=== PATIENT | female | born 1965 | race Caucasian/White ===

== ENCOUNTER 2019-02-14 13:13 | Emergency (ER) | payer BC ==
[2019-02-14] MEDS ORDERED: LIDOCAINE 1% MPF 2 ML AMPULE ONE (15:18)
[2019-02-14] MEDS ORDERED: CEFTRIAXONE 1000 MG/VIAL ONE (15:19)
--- NOTE | 2019-02-14 15:22 | EDPHYS ---
Physician Documentation [facility] Name: Chino Cisneros Age: 53 yrs Sex: Female : 1965 Arrival Date: 02/14/2019 Time: 13:14 Bed 20 Private MD: ED Physician Dakota Duff HPI: 02/14 15:23 This 53 yrs old Female presents to ER via Ambulatory with complaints of snw Urinary Problem. 15:23 The patient presents with urinary symptoms, dysuria, frequency, hesitancy, urgency. snw Onset: The symptoms/episode began/occurred suddenly, 4 day(s) ago, and became persistent. Modifying factors: The symptoms are alleviated by nothing. Severity of symptoms: At their worst the symptoms were moderate. The patient has experienced similar episodes in the past. The patient has not recently seen a physician. took 3 days of friend's abx (unknown name). 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 - Social history:: Smoking status: Patient/guardian denies using tobacco, Patient/guardian denies using alcohol. - Ebola Screening: : Patient negative for fever greater than or equal to 101.5 degrees Fahrenheit, and additional compatible Ebola Virus Disease symptoms Patient denies exposure to infectious person Patient denies travel to an Ebola-affected area in the 21 days before illness onset. ROS: 15:19 Constitutional: Negative for fever, chills, and weight loss, Eyes: Negative for injury, snw pain, redness, and discharge, ENT: Negative for injury, pain, and discharge, Neck: Negative for injury, pain, and swelling, Cardiovascular: Negative for chest pain, palpitations, and edema, Respiratory: Negative for shortness of breath, cough, wheezing, and pleuritic chest pain, Abdomen/GI: Negative for abdominal pain, nausea, vomiting, diarrhea, and constipation, Back: Negative for injury and pain, MS/Extremity: Negative for injury and deformity, Skin: Negative for injury, rash, and discoloration, Neuro: Negative for headache, weakness, numbness, tingling, and seizure, Psych: Negative for depression, anxiety, suicide ideation, homicidal ideation, and hallucinations. 15:19 : Positive for urinary symptoms, urinary frequency, small amounts, burning with urination. Exam: 15:19 Constitutional: This is a well developed, well nourished patient who is awake, alert, snw and in no acute distress. Head/Face: Normocephalic, atraumatic. Eyes: Pupils equal round and reactive to light, extra-ocular motions intact. Lids and lashes normal. Conjunctiva and sclera are non-icteric and not injected. Cornea within normal limits. Periorbital areas with no swelling, redness, or edema. ENT: Nares patent. No nasal discharge, no septal abnormalities noted. Tympanic membranes are normal and external auditory canals are clear. Oropharynx with no redness, swelling, or masses, exudates, or evidence of obstruction, uvula midline. Mucous membranes moist. Neck: Trachea midline, no thyromegaly or masses palpated, and no cervical lymphadenopathy. Supple, full range of motion without nuchal rigidity, or vertebral point tenderness. No Meningismus. Chest/axilla: Normal chest wall appearance and motion. Nontender with no deformity. No lesions are appreciated. Cardiovascular: Regular rate and rhythm with a normal S1 and S2. No gallops, murmurs, or rubs. Normal PMI, no JVD. No pulse deficits. Respiratory: Lungs have equal breath sounds bilaterally, clear to auscultation and percussion. No rales, rhonchi or wheezes noted. No increased work of breathing, no retractions or nasal flaring. Abdomen/GI: Soft, non-tender, with normal bowel sounds. No distension or tympany. No guarding or rebound. No evidence of tenderness throughout. Back: No spinal tenderness. No costovertebral tenderness. Full range of motion. Skin: Warm, dry with normal turgor. Normal color with no rashes, no lesions, and no evidence of cellulitis. MS/ Extremity: Pulses equal, no cyanosis. Neurovascular intact. Full, normal range of motion. Neuro: Awake and alert, GCS 15, oriented to person, place, time, and situation. Cranial nerves II-XII grossly intact. Motor strength 5/5 in all extremities. Sensory grossly intact. Cerebellar exam normal. Normal gait. Psych: Awake, alert, with orientation to person, place and time. Behavior, mood, and affect are within normal limits. Vital Signs: 13:23 BP 116 / 56; Pulse 87; Resp 18; Temp 98.7(O); Pulse Ox 100% on R/A; Weight 53.98 kg; hj Height 5 ft. 4 in. (162.56 cm); Pain 0/10; 13:23 Body Mass Index 20.43 (53.98 kg, 162.56 cm) hj MDM: 15:08 Patient medically screened. snw 15:22 Data reviewed: vital signs, nurses notes. Data interpreted: Pulse oximetry: on room air snw is 100 %. Interpretation: normal. Counseling: I had a detailed discussion with the patient and/or guardian regarding: the historical points, exam findings, and any diagnostic results supporting the discharge/admit diagnosis, the need for outpatient follow up, to return to the emergency department if symptoms worsen or persist or if there are any questions or concerns that arise at home. Special discussion: Based on the patient's Hx, exam, and Dx evaluation, there is no indication for emergent surgery or inpatient Tx. It is understood by the patient/guardian that if the Sx's persist or worsen they need to return immediately for re-evaluation. Based on the history and exam findings, there is no indication for further emergent testing or inpatient evaluation. I discussed with the patient/guardian the need to see the primary care provider for further evaluation of the symptoms. 02/14 14:08 Order name: Urine Culture [facility] 02/14 14:08 Order name: Urine Microscopic Only [facility] 02/14 14:08 Order name: Urine Dipstick-Ancillary (obtain specimen); Complete Time: 14:35 [facility] 02/14 14:38 Order name: Urine Dipstick--Ancillary (enter results) [facility] 02/14 14:38 Order name: Urine --Ancillary (enter results) [facility] 02/14 14:57 Order name: Labs - recollect needed; Complete Time: 15:15 aa5 Administered Medications: 15:30 Drug: Rocephin (cefTRIAXone) 1 grams Route: IM; Site: left ventrogluteal; hb Disposition: 18:17 Co-signature as Attending Physician, Dakota Duff MD I agree with the assessment and wa plan of care. Disposition: 02/14/19 15:21 Discharged to Home. Impression: Urinary tract infection, site not specified. - Condition is Stable. - Discharge Instructions: Urinary Tract Infection, Adult, Rehydration, Adult. - Prescriptions for cefpodoxime 100 mg Oral Tablet - take 1 tablet by ORAL route every 12 hours for 10 days take with food; 20 tablet. - Medication Reconciliation Form, Thank You Letter, Antibiotic Education, Prescription Opioid Use form. - Follow up: Private Physician; When: 2 - 3 days; Reason: Recheck today's complaints, Continuance of care, Re-evaluation by your physician. Follow up: Emergency Department; When: As needed; Reason: Worsening of condition. Signatures: Dispatcher [employer] EDMS Joan Harris, DELIA-C BRIEF WRITER-Csnw Ana Pablo RN RN aa Kei Johnson RN RN Jocelyn Guallpa RN RN Dakota Duff MD MD fl Corrections: (The following items were deleted from the chart) 15:49 15:21 02/14/2019 15:21 Discharged to Home. Impression: Urinary tract infection, site hb not specified. Condition is Stable. Forms are Medication Reconciliation Form, Thank You Letter, Antibiotic Education, Prescription Opioid Use. Follow up: Private Physician; When: 2 - 3 days; Reason: Recheck today's complaints, Continuance of care, Re-evaluation by your physician. Follow up: Emergency Department; When: As needed; Reason: Worsening of condition. snw
--- NOTE | 2019-02-14 15:22 | ER ---
Nurse's Notes [facility] Name: Chino Cisneros Age: 53 yrs Sex: Female : 1965 Arrival Date: 02/14/2019 Time: 13:14 Bed 20 Private MD: Diagnosis: Urinary tract infection, site not specified Presentation: 02/14 13:21 Presenting complaint: Patient states: im sure i have UTI, because of burning with hj urination, i took antibiotic pills from a friend for 3 days; now i have chills; denies pain;. Transition of care: patient was not received from another setting of care. Onset of symptoms was February 14, 2019. Risk Assessment: Do you want to hurt yourself or someone else? Patient reports no desire to harm self or others. Initial Sepsis Screen: Does the patient meet any 2 criteria? Yes Does the patient have a suspected source of infection? Yes:. Care prior to arrival: None. 13:21 Method Of Arrival: Ambulatory 13:21 Acuity: ANKUSH 4 hj Triage Assessment: 13:23 General: Appears in no apparent distress. uncomfortable, Behavior is cooperative, hj appropriate for age, anxious. 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 - Social history:: Smoking status: Patient/guardian denies using tobacco, Patient/guardian denies using alcohol. - Ebola Screening: : Patient negative for fever greater than or equal to 101.5 degrees Fahrenheit, and additional compatible Ebola Virus Disease symptoms Patient denies exposure to infectious person Patient denies travel to an Ebola-affected area in the 21 days before illness onset. Screenin:23 Abuse screen: Denies threats or abuse. Denies injuries from another. Nutritional hj screening: No deficits noted. Tuberculosis screening: No symptoms or risk factors identified. Fall Risk None identified. Assessment: 15:00 General: Appears in no apparent distress. Behavior is calm, cooperative. Pain: Pain hb currently is 3 out of 10 on a pain scale. Neuro: Level of Consciousness is awake, alert, obeys commands, Oriented to person, place, time, situation. Cardiovascular: Capillary refill < 3 seconds Patient's skin is warm and dry. Respiratory: Airway is patent Respiratory effort is even, unlabored, Respiratory pattern is regular, symmetrical. GI: No signs and/or symptoms were reported involving the gastrointestinal system. : Reports burning with urination, urinary frequency. EENT: No signs and/or symptoms were reported regarding the EENT system. Derm: Skin is intact, is healthy with good turgor. Musculoskeletal: No signs and/or symptoms reported regarding the musculoskeletal system. Vital Signs: 13:23 BP 116 / 56; Pulse 87; Resp 18; Temp 98.7(O); Pulse Ox 100% on R/A; Weight 53.98 kg; hj Height 5 ft. 4 in. (162.56 cm); Pain 0/10; 13:23 Body Mass Index 20.43 (53.98 kg, 162.56 cm) ED Course: 13:14 Patient arrived in ED. as 13:22 Triage completed. hj 13:24 Arm band placed on right wrist. hj 13:24 Patient has correct armband on for positive identification. Placed in gown. Bed in low hj position. Call light in reach. Side rails up X 1. Adult w/ patient. 14:09 Joan Harris FNP-C is PHCP. snw 14:09 Dakota Duff MD is Attending Physician. snw 14:35 Jocelyn Guallpa RN is Primary Nurse. hb 15:30 No provider procedures requiring assistance completed. Patient did not have IV access hb during this emergency room visit. Administered Medications: 15:30 Drug: Rocephin (cefTRIAXone) 1 grams Route: IM; Site: left ventrogluteal; hb Outcome: 15:21 Discharge ordered by . snw 15:30 Discharged to home ambulatory, with significant other. hb 15:30 Condition: stable 15:30 Discharge instructions given to patient, Instructed on discharge instructions, follow up and referral plans. medication usage, Demonstrated understanding of instructions, follow-up care, medications, Prescriptions given X 1. 15:49 Patient left the ED. hb Signatures: Joan Harris FNP-C FNP-Jaylin Escamilla as Kei Johnson RN RN hj Jocelyn Guallpa RN RN Corrections: (The following items were deleted from the chart) 13: 13:23 53.98 kg; Height 5 ft. 4 in.; BMI: 20.4; Pain 0/10; hj hj 13:26 13:23 Pulse 87bpm; Resp 18bpm; Pulse Ox 100% RA; Temp 98.7F Oral; 53.98 kg; Height 5 hj ft. 4 in.; BMI: 20.4; Pain 0/10; hj 15:32 13:21 Acuity: ANKUSH 3 hj hj
[2019-02-14 15:53] VITALS: BP 116/56; TEMP 98.7; O2SAT 100
[2019-02-14 16:29] LABS: Urine Blood 3+ (NEG); Urine Glucose NEGATIVE (NEG); Urine Specific Gravity 1.015 (1.005-1.030)
[2019-02-14 16:30] LABS: Urine Protein 2+ (NEG)
[2019-02-14 17:11] LABS: Urine Bacteria >50 /HPF (<20); Urine Culture Reflex Order NOT NEEDED; Urine RBC >50 /HPF (NONE SEEN)
== END 2019-02-14 15:49 | disposition home or self-care (01) ==
LOC: ER 13:13
DX: N39.0 Urinary tract infection, site not specified (principal); F32.9 Major depressive disorder, single episode, unspecified
CPT/HCPCS: 81003; 81015; 81025; 87077; 87086; 87088; 87186; 96372; 99283; J2001

== ENCOUNTER 2020-06-09 20:55 | Emergency (ER) | payer BC ==
[2020-06-09 22:04] LABS: Absolute Lymphocytes (CBC) 1.7 K/uL (0.7-4.9); Basophils % 1.4 % (0-1.3); Hematocrit 36.2 % (36.0-45.0); Lymphocytes % 34.8 % (15.3-44.8); MPV 7.9 fL (7.6-11.3)
[2020-06-09 22:26] LABS: Protime INR 0.94
[2020-06-09 22:37] LABS: ALT/SGPT 37 U/L (12-78); AST/SGOT 38 U/L (15-37); Albumin 3.4 g/dL (3.4-5.0); Alkaline Phosphatase 36 U/L (45-117); BUN Blood Urea Nitrogen 25 mg/dL (7-18); Bicarbonate 27 mmol/L (21-32); Bilirubin Direct 0.1 mg/dL (0-0.2); Bilirubin Total 0.3 mg/dL (0.2-1.0); Glucose Level 92 mg/dL (74-106); NT PRO-BNP 46 pg/mL (<125); Potassium 3.8 mmol/L (3.5-5.1); Protein, Total 6.3 g/dL (6.4-8.2); Sodium Level 142 mmol/L (136-145); Troponin (Emerg Dept Use Only) < 0.02 ng/mL (0.0-0.045)
--- NOTE | 2020-06-10 00:10 | EDPHYS ---
Physician Documentation [facility] Name: Chino Cisneros Age: 54 yrs Sex: Female : 1965 Arrival Date: 06/09/2020 Time: 20:57 Bed 24 Private MD: ED Physician Arnol Deng HPI: 06/09 21:23 This 54 yrs old Female presents to ER via Ambulatory with complaints of mh7 Palpitations. 21:23 The patient presents with a history of heart racing. Context: The symptoms occur at mh7 rest, without known cause. Onset: The symptoms/episode began/occurred 2 week(s) ago. Duration: The patient or guardian reports multiple episodes, that are intermittent, that wax and wane, with no pattern. Modifying factors: The symptoms are aggravated by nothing. The symptoms are alleviated by nothing. Associated signs and symptoms: Pertinent positives: lightheadedness, Pertinent negatives: anxiety, chest pain, cough, fever, nausea, SOB, syncope, unusual stressors, vertigo, vomiting. Severity of symptoms: At their worst the symptoms were moderate today, in the emergency department the symptoms have improved markedly. 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 - Social history:: Patient/guardian denies using street drugs, Smoking status: Patient denies any tobacco usage or history of. Patient/guardian denies using. ROS: 21:23 Constitutional: Negative for fever, chills, and weight loss, Eyes: Negative for injury, mh7 pain, redness, and discharge, ENT: Negative for injury, pain, and discharge, Neck: Negative for injury, pain, and swelling, Respiratory: Negative for shortness of breath, cough, wheezing, and pleuritic chest pain, Abdomen/GI: Negative for abdominal pain, nausea, vomiting, diarrhea, and constipation, Back: Negative for injury and pain, : Negative for injury, bleeding, discharge, and swelling, MS/Extremity: Negative for injury and deformity, Skin: Negative for injury, rash, and discoloration, Neuro: Negative for headache, weakness, numbness, tingling, and seizure, Psych: Negative for depression, anxiety, suicide ideation, homicidal ideation, and hallucinations, Allergy/Immunology: Negative for hives, rash, and allergies, Endocrine: Negative for neck swelling, polydipsia, polyuria, polyphagia, and marked weight changes, Hematologic/Lymphatic: Negative for swollen nodes, abnormal bleeding, and unusual bruising. Exam: 21:23 Constitutional: This is a well developed, well nourished patient who is awake, alert, mh7 and in no acute distress. Head/Face: Normocephalic, atraumatic. Eyes: Pupils equal round and reactive to light, extra-ocular motions intact. Lids and lashes normal. Conjunctiva and sclera are non-icteric and not injected. Cornea within normal limits. Periorbital areas with no swelling, redness, or edema. Neck: Trachea midline, no thyromegaly or masses palpated, and no cervical lymphadenopathy. Supple, full range of motion without nuchal rigidity, or vertebral point tenderness. No Meningismus. Chest/axilla: Normal chest wall appearance and motion. Nontender with no deformity. No lesions are appreciated. Cardiovascular: Regular rate and rhythm with a normal S1 and S2. No gallops, murmurs, or rubs. Normal PMI, no JVD. No pulse deficits. Respiratory: Lungs have equal breath sounds bilaterally, clear to auscultation and percussion. No rales, rhonchi or wheezes noted. No increased work of breathing, no retractions or nasal flaring. Abdomen/GI: Soft, non-tender, with normal bowel sounds. No distension or tympany. No guarding or rebound. No evidence of tenderness throughout. Back: No spinal tenderness. No costovertebral tenderness. Full range of motion. Skin: Warm, dry with normal turgor. Normal color with no rashes, no lesions, and no evidence of cellulitis. MS/ Extremity: Pulses equal, no cyanosis. Neurovascular intact. Full, normal range of motion. Neuro: Awake and alert, GCS 15, oriented to person, place, time, and situation. Cranial nerves II-XII grossly intact. Motor strength 5/5 in all extremities. Sensory grossly intact. Cerebellar exam normal. Normal gait. Psych: Awake, alert, with orientation to person, place and time. Behavior, mood, and affect are within normal limits. 21:23 ECG was reviewed by the Attending Physician. Vital Signs: 21:14 BP 159 / 86; Pulse 73; Resp 16; Temp 98.2; Pulse Ox 99% ; Pain 0/10; ll1 22:03 BP 114 / 64; Pulse 65; Resp 16; Pulse Ox 100% on R/A; Pain 0/10; mt2 23:05 BP 106 / 57; Pulse 64; Resp 16; Pulse Ox 100% on R/A; Pain 0/10; mt2 06/10 00:10 BP 110 / 62; Pulse 63; Resp 16; Pulse Ox 100% on R/A; Pain 0/10; mt2 MDM: 06/09 21:21 Patient medically screened. [facility] 06/10 00:06 Differential diagnosis: arrythmia, dehydration, stress disorder. Data reviewed: vital [facility] signs, nurses notes, lab test result(s), cardiac enzymes, CBC, electrolytes, urinalysis, EKG, radiologic studies, plain films. Data interpreted: telemetry monitor: rate is 64 beats/min, rhythm is normal sinus rhythm, regular, Interpretation: normal rate, normal rhythm, Pulse oximetry: on room air is 100 %. Interpretation: normal. Counseling: I had a detailed discussion with the patient and/or guardian regarding: the historical points, exam findings, and any diagnostic results supporting the discharge/admit diagnosis, lab results, radiology results, the need for outpatient follow up, to return to the emergency department if symptoms worsen or persist or if there are any questions or concerns that arise at home. Response to treatment: the patient's symptoms have resolved after treatment, the patient's blood pressure is in an acceptable range, mental status has returned to baseline, the patient no longer shows bradycardia, the patient is not short of breath, the patient is not tachycardic, the patient's pain is gone, the patient's temperature has normalized. Refusal of service: The patient/guardian displays adequate decision making capability and despite a detailed discussion of alternatives, benefits, risks, and consequences refuses:. 06/09 21:22 Order name: Basic Metabolic Panel [facility] 06/09 21:22 Order name: CBC with Diff [facility] 06/09 21:22 Order name: LFT's [facility] 06/09 21:22 Order name: Magnesium [facility] 06/09 21:22 Order name: NT PRO-BNP; Complete Time: 23:17 [facility] 06/09 21:22 Order name: PT-INR; Complete Time: 22:29 [facility] 06/09 21:22 Order name: Troponin (emerg Dept Use Only); Complete Time: 23:17 [facility] 06/09 21:22 Order name: TSH; Complete Time: 23:17 [facility] 06/09 21:22 Order name: DD; Complete Time: 22:29 [facility] 06/09 21:22 Order name: Basic Metabolic Panel; Complete Time: 23:17 [facility] 06/09 21:22 Order name: CBC with Automated Diff; Complete Time: 22:29 [facility] 06/09 21:22 Order name: Liver (Hepatic) Function; Complete Time: 23:17 [facility] 06/09 21:22 Order name: Magnesium; Complete Time: 23:17 [facility] 06/09 22:46 Order name: T4 Free; Complete Time: 23:17 [facility] 06/09 21:22 Order name: XRAY Chest (1 view) [facility] 06/09 21:22 Order name: Cardiac monitoring; Complete Time: 21:54 [facility] 06/09 21:22 Order name: EKG - Nurse/Tech; Complete Time: 21:38 [facility] 06/09 21:22 Order name: IV Saline Lock; Complete Time: 21:55 [facility] 06/09 21:22 Order name: Labs collected and sent; Complete Time: 21:55 [facility] 06/09 21:22 Order name: O2 Per Protocol; Complete Time: 21:55 [facility] 06/09 21:22 Order name: O2 Sat Monitoring; Complete Time: 23:12 [facility] 06/09 23:25 Order name: Urine Dipstick-Ancillary (obtain specimen); Complete Time: 23:31 [facility] 06/09 23:42 Order name: Urine Dipstick--Ancillary (enter results) mw2 EC/19 21:23 Rate is 66 beats/min. Rhythm is regular, Normal Sinus Rhythm. QRS [place] is Normal. HI mh7 interval is normal. QRS interval is normal. QT interval is normal. No Q waves. T waves are Normal. No ST changes noted. Clinical impression: Normal ECG. Administered Medications: No medications were administered Disposition: 06/10/20 00:09 Discharged to Home. Impression: Palpitations. - Condition is Stable. - Discharge Instructions: Palpitations, [id number]. - Medication Reconciliation Form, Thank You Letter, Antibiotic Education, Prescription Opioid Use form. - Follow up: Private Physician; When: 1 - 2 days; Reason: Worsening of condition, Recheck today's complaints, Continuance of care, Re-evaluation by your physician. Follow up: Clarence Villagran MD; When: 1 - 2 days; Reason: Worsening of condition, Recheck today's complaints. - Problem is an ongoing problem. - Symptoms have improved. Signatures: Dispatcher [employer] EDMS Jhon Mosqueda RN RN ll1 Arnol Deng MD MD 7 Melissa Dempsey RN RN mt2 Corrections: (The following items were deleted from the chart) 06/10 00:20 00:09 06/10/2020 00:09 Discharged to Home. Impression: Palpitations. Condition is mt2 Stable. Forms are Medication Reconciliation Form, Thank You Letter, Antibiotic Education, Prescription Opioid Use. Follow up: Private Physician; When: 1 - 2 days; Reason: Worsening of condition, Recheck today's complaints, Continuance of care, Re-evaluation by your physician. Follow up: Clarence Villagran; When: 1 - 2 days; Reason: Worsening of condition, Recheck today's complaints. Problem is an ongoing problem. Symptoms have improved. mh7
--- NOTE | 2020-06-10 00:10 | ER ---
Nurse's Notes [facility] Name: Chino Cisneros Age: 54 yrs Sex: Female : 1965 Arrival Date: 06/09/2020 Time: 20:57 Bed 24 Private MD: Diagnosis: Palpitations Presentation: 06/09 21:14 Chief complaint: Patient states: Palpitations for 2 weeks. Near syncope event tonight, ll1 so she came to be checked. No cough/fever. No pain. Coronavirus screen: Patient denies a cough. Patient denies shortness of breath or difficulty breathing. Patient denies measured and/or subjective temperature greater than 100.4F prior to today's visit. Patient denies travel on a cruise ship or to a country the [facility] currently lists as an affected area. Patient denies contact with known and/or suspected case of COVID-19. Proceed with normal triage. Ebola Screen: Patient denies travel to an Ebola-affected area in the 21 days before illness onset. Initial Sepsis Screen: Does the patient meet any 2 criteria? No. Patient's initial sepsis screen is negative. Risk Assessment: Do you want to hurt yourself or someone else? Patient reports no desire to harm self or others. Onset of symptoms was May 26, 2020. 21:14 Method Of Arrival: Ambulatory 1 21:14 Acuity: ANKUSH 3 ll1 06/10 00:12 Initial Sepsis Screen: Does the patient have a suspected source of infection? No. mt2 Patient's initial sepsis screen is negative. Triage Assessment: 00:11 General: Behavior is cooperative. 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 - Social history:: Patient/guardian denies using street drugs, Smoking status: Patient denies any tobacco usage or history of. Patient/guardian denies using. Screenin:30 Abuse screen: Denies threats or abuse. Nutritional screening: No deficits noted. mt2 Tuberculosis screening: No symptoms or risk factors identified. Fall Risk None identified. Assessment: 21:33 Reassessment: Patient and/or family updated on plan of care and expected duration. Pain mt2 level reassessed. Patient denies pain at this time. General: Appears in no apparent distress. comfortable. 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 22:15 Reassessment: No changes from previously documented assessment. Patient and/or family mt2 updated on plan of care and expected duration. Pain level reassessed. Patient denies pain at this time. 23:05 Reassessment: Patient and/or family updated on plan of care and expected duration. Pain mt2 level reassessed. Patient denies pain at this time. 06/10 00:10 Reassessment: Patient and/or family updated on plan of care and expected duration. Pain mt2 level reassessed. Patient denies pain at this time. Patient states feeling better. Patient states symptoms have improved. Vital Signs: 06/09 21:14 BP 159 / 86; Pulse 73; Resp 16; Temp 98.2; Pulse Ox 99% ; Pain 0/10; 1 22:03 BP 114 / 64; Pulse 65; Resp 16; Pulse Ox 100% on R/A; Pain 0/10; mt2 23:05 BP 106 / 57; Pulse 64; Resp 16; Pulse Ox 100% on R/A; Pain 0/10; mt2 06/10 00:10 BP 110 / 62; Pulse 63; Resp 16; Pulse Ox 100% on R/A; Pain 0/10; mt2 ED Course: 06/09 20:57 Patient arrived in ED. ag3 21:02 Arnol Deng MD is Attending Physician. [facility] 21:16 Triage completed. 1 21:16 Arm band placed on Patient placed in an exam room, on a stretcher. EKG completed in 1 triage. Results shown to MD. 21:30 Initial lab(s) drawn, by la, sent to lab. Inserted saline lock: 20 gauge in left mt2 antecubital area, using aseptic technique. Blood collected. 21:32 Melissa Dempsey, ACM is Primary Nurse. mt2 21:45 XRAY Chest (1 view) In Process Unspecified. EDMS 21:54 Liver (Hepatic) Function Sent. mt2 21:54 Magnesium Sent. mt2 21:54 CBC with Automated Diff Sent. mt2 21:54 Basic Metabolic Panel Sent. mt2 21:54 DD Sent. mt2 21:54 TSH Sent. mt2 21:55 Basic Metabolic Panel Sent. mt2 21:55 CBC with Diff Sent. mt2 21:55 LFT's Sent. mt2 21:55 Magnesium Sent. mt2 21:55 NT PRO-BNP Sent. mt2 21:55 PT-INR Sent. mt2 21:55 Troponin (emerg Dept Use Only) Sent. mt2 22:02 Patient has correct armband on for positive identification. Bed in low position. Call mt2 light in reach. Side rails up X 1. 06/10 00:09 Clarence Villagran MD is Referral Physician. [facility] 00:10 IV discontinued, intact, bleeding controlled, No redness/swelling at site. Pressure ar2 dressing applied. 00:11 No provider procedures requiring assistance completed. mt2 Administered Medications: No medications were administered Outcome: 00:09 Discharge ordered by . [facility] 00:10 Discharged to home ambulatory. mt2 00:10 Condition: good 00:10 Discharge instructions given to patient, Instructed on discharge instructions, follow up and referral plans. medication usage, Demonstrated understanding of instructions, follow-up care, medications. 00:20 Patient left the ED. mt2 Signatures: Dispatcher [employer] EDMS Clarice Ochoa 3 Jhon Mosqueda RN RN 1 Arnol Deng MD MD 7 Melissa Dempsey RN RN mt2
[2020-06-10 01:19] VITALS: O2SAT 100
[2020-06-10 01:20] VITALS: TEMP 98.2
[2020-06-10 01:23] VITALS: BP 110/62
[2020-06-10 02:18] LABS: Urine Blood 2+ (NEG); Urine Glucose NEGATIVE (NEG); Urine Protein TRACE (NEG); Urine Specific Gravity 1.025 (1.005-1.030); Urine pH 7.5 (5.0-7.0)
--- NOTE | 2020-06-10 08:07 | RAD REPORT ---
EXAM DESCRIPTION: Danyelle Single View06/09/2020 9:45 pm CLINICAL HISTORY: Palpitations COMPARISON: 2017 FINDINGS: The lungs appear clear of acute infiltrate. The heart is normal size IMPRESSION: No acute abnormalities displayed
== END 2020-06-10 00:20 | disposition home or self-care (01) ==
LOC: ER 20:55
DX: R00.2 Palpitations (principal)
CPT/HCPCS: 36415; 71045; 80048; 80076; 81003; 83735; 83880; 84439; 84443; 84484; 85025; 85379; 85610; 99284